=== PATIENT | male | born 1955 | race African-American/Black ===

== ENCOUNTER 2023-12-01 15:00 | Inpatient (IN) | payer MEDICARE, OTHER, SELFPAY ==
[2023-12-01] VITALS (15 sets, daily range): BP systolic 0–175; BP diastolic 80–104; BMI 27.0
[2023-12-01 10:02] LABS: Glucose - Point of Care 104 mg/dl (70-99)
[2023-12-01 12:49] LABS: Glucose - Point of Care 89 mg/dl (70-99)
--- NOTE | 2023-12-01 14:03 | CON.CRS ---
Consultation
-
Date/Time Consultation Requested: 12/01/2023, 14:03
Date/Time Consultation Performed: 12/01/2023, 14:30
Requesting Provider: Saturnino Bass MD
Performing Provider: Jaime Vega MD
Reason for Consultation: Colon perforation
Medical History
-
Chief Complaint: Colon perforation
History of Present Illness:
HPI obtained from daughter Kandice and records (patient nonverbal).
68-year-old male with a past medical history of vascular dementia, nonverbal, CVA with G-tube, colon cancer s/p colostomy (daughter unsure what area of colon or type) and chemo in 2012 in [place], kidney cancer s/p nephrectomy and chemo,
chronic [place], history of PE, type 2 diabetes among other medical issues presents today for colonoscopy. He underwent a colonoscopy due to a positive cologuard in April [address] Robin which showed one 8 mm polyp in the transverse colon, one 10
mm polyp in the descending colon, two 5 to 10 mm polyps in the ascending colon, and a likely malignant tumor in the proximal ascending colon. 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 Per records, he
was in inpatient at [facility] in July 2023 and then at [place] in October 2023 where he had fluid around his gallbladder and ERCP showed a stone, drain placed. The patient was scheduled in an outpatient setting for colonoscopy today
by Dr. Bass. This revealed a 6 mm polyp in the cecum, and a 38 mm polyp in the ascending colon that was retrieved. A perforation was noted intraprocedure and clips were placed. He was then admitted for ongoing care due to this.
Past Medical History
Past Medical History: Cancer (colon cancer s/p colostomy, kidney cancer s/p nephrectomy) and Other (vascular dementia, nonverbal, CVA with G-tube, colostomy s/p colectomy from colon cancer, chronic [place], hypertension, hypercholesteremia,
hypothyroidism, pulmonary embolism, glaucoma, type 2 diabetes, hyperlipidemia, s/p biliary tube - gallstone)
Past Surgical History: Other (G tube, biliary tube, colectomy with colostomy creation - 2013, nephrectomy)
Social History
Tobacco: Non-Smoker
Alcohol: None
Drug: None
Family History
Family History: Reviewed & Not Pertinent
Allergies / Home Medications
Allergy/AdvReac Type Severity Reaction Status Date / Time
No Known Drug Allergies Allergy Unknown Verified 12/01/23 10:19
Medication Instructions Recorded Confirmed Type
acetaminophen 325 mg tablet 650 mg feeding tube Q6H PRN mild 05/04/23 05/06/23 History
pain or fever>100
albuterol sulfate 2.5 mg/3 mL 2.5 mg inhalation R Q6HPRN PRN sob 05/04/23 05/06/23 History
(0.083 %) solution for nebulization
amlodipine 5 mg tablet 5 mg feeding tube DAILY 05/04/23 05/06/23 History
apixaban 2.5 mg tablet (Eliquis) 2.5 mg feeding tube BID 05/04/23 12/01/23 History
atorvastatin 20 mg tablet 20 mg feeding tube HS 05/04/23 05/06/23 History
hydrochlorothiazide 50 mg tablet 50 mg feeding tube DAILY 05/04/23 05/06/23 History
insulin aspart U-100 100 unit/mL 1 - 10 sliding scale dose SC Q6H 05/04/23 05/06/23 History
(3 mL) subcutaneous pen (Novolog
FlexPen U-100 Insulin aspart)
insulin glargine 100 unit/mL (3 8 unit SC HS 05/04/23 05/06/23 History
mL) subcutaneous pen (Lantus
Solostar U-100 Insulin)
lisinopril 10 mg tablet 10 mg feeding tube DAILY 05/04/23 05/06/23 History
methenamine hippurate 1 gram tablet 1 g feeding tube BID 05/04/23 05/06/23 History
metoprolol tartrate 25 mg tablet 12.5 mg feeding tube BID 05/04/23 05/06/23 History
omeprazole 20 mg capsule,delayed 20 mg feeding tube HS 05/04/23 05/06/23 History
release
ascorbic acid (vitamin C) 500 mg 500 mg feeding tube DAILY 05/06/23 05/06/23 History
tablet (Vitamin C)
bisacodyl 10 mg rectal suppository 10 mg [place] DAILY PRN constipation 05/06/23 05/06/23 History
(Dulcolax (bisacodyl)) once if mom ineffective
cholecalciferol (vitamin D3) 25 25 mcg feeding tube DAILY 05/06/23 05/06/23 History
mcg (1,000 unit) tablet
cranberry fruit 450 mg tablet 450 mg feeding tube BID 05/06/23 05/06/23 History
(cranberry)
emollient combination no.111 1 applic topical TID apply to both 05/06/23 05/06/23 History
(Remedy Phytoplex Moisturizer buttocks
topical cream)
ferrous sulfate 300 mg (60 mg 150 mg feeding tube BID 05/06/23 05/06/23 History
iron)/5 mL oral liquid
latanoprost 0.005 % eye drops 1 drp BOTH EYES HS 05/06/23 05/06/23 History
levetiracetam 500 mg/5 mL (5 mL) 500 mg feeding tube BID 05/06/23 05/06/23 History
oral solution
levothyroxine 25 mcg tablet 25 mcg feeding tube DAILY 05/06/23 05/06/23 History
magnesium hydroxide 400 mg/5 mL 30 ml feeding tube DAILY PRN give 05/06/23 05/06/23 History
oral suspension (Milk of Magnesia) once if no BM x 3 days
nystatin 100,000 unit/gram topical 1 applic topical TID apply to abd 05/06/23 05/06/23 History
powder fold, colostom blister site
oxybutynin 3.9 mg/24 hr semiweekly 1 patch transdermal TUFR 05/06/23 05/06/23 History
transdermal patch (Oxytrol)
polyethylene glycol 3350 17 gram 17 g feeding tube DAILY PRN 05/06/23 05/06/23 History
oral powder packet constipation
polyethylene glycol 3350 17 gram 17 g feeding tube DAILY 05/06/23 05/06/23 History
oral powder packet (Miralax)
senna leaf extract 176 mg/5 mL 15 ml feeding tube HS 05/06/23 05/06/23 History
oral syrup (senna)
simethicone 80 mg chewable tablet 80 mg PO Q6H PRN gas 05/06/23 05/06/23 History
sodium phosphates 19 gram-7 118 ml NM DAILY PRN once if 05/06/23 05/06/23 History
gram/118 mL enema (Fleet Enema) dulcolax ineffective
Review of Systems
-
Unable to obtain full review of systems at this time due to: Patient Non Verbal
History Source: Family and [facility]
All other systems: Negative unless noted
A 10 point review of systems was completed, and was negative except as per HPI.
Physical Exam
Vital Signs
Temp 97.9 F 12/01/23 10:00
Pulse 90 12/01/23 10:00
Resp Rate 18 12/01/23 10:00
Blood pressure 137/100 12/01/23 10:00
SaO2 100 12/01/23 10:00
11/30/23 12/01/23 12/02/23
06:59 06:59 06:59
Actual Weight 83 kg
Body Mass Index (BMI) 27.0
Lab Results / Allergies
Allergy/AdvReac Type Severity Reaction Status Date / Time
No Known Drug Allergies Allergy Unknown Verified 12/01/23 10:19
Physical Exam
General: No Apparent Distress and Comfortable
GI: Soft, Non Tender and Non Distended
Neuro: Other (nonverbal, sleepy)
Psych: Calm
Data Reviewed
-
Medical Tests (Nuc Med, Echo etc): Image Personally Visualized and interpreted and Report Reviewed by me
Labs: Labs Reviewed by me and Discussed with Physician
Assessment / Plan
-
Assessment: 68-year-old male with several medical issues including a past CVA, nonverbal state, colostomy, and G tube, status post colonoscopy today with a perforation upon resection treated with clips
Plan:
Remain n.p.o. status. Start IV antibiotics. Hold Eliquis. Will be admitted. Trend labs and vital signs. Discussed with daughterKandice. No surgery warranted at this time.
--- NOTE | 2023-12-01 14:18 | HPS.HSE ---
Addendum entered and electronically signed by Joanne Freeman MD 12/01/23 16:24:
pt seen and examined independently--agree with [facility] note
GENERAL: chronically ill appearing male in no apparent distress seen in PACU
HEENT: NC/AT--O2 NC in [address]
HEART: regular rate and rhythm, +S1, +S2
LUNGS : clear to auscultation bilaterally
ABDOM: soft, nontender, nondistended, + bowel sounds--left sided ostomy with right sided percutaneous cholecystectomy tube with green bile
EXT: no cyanosis, clubbing, or edema--thickened toenails, multipodis boots on bilateral legs--contracted arms
NEUROLOGIC: nonverbal with presumed bedbound status and contractures
: chronic call[place]?
Colon Perforation ascending colon status post polyp resection today 12/01/2023-- 6 mm polyp cecum removed, 30 mm polyp resection ascending colon with post perforation--ADMIT to [facility]--apprec GI/CRS--NPO--IVF--meds IV as able--start zosyn--culture
Hx rectal bleeding post colonoscopy with polypectomy May 2023
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
CVA hx/History of vascular dementia, nonverbal at baseline--Chronic� contracture neck, arms, left hand and legs--not amenable to PT/OT
Seizure history?� Post CVA--Continue IV Keppra
Chronic G-tube 11/06 CVA--Chronic Abd pain per daughter
Gerd-- will make PPI IV daily
Chronic [place] catheter--monitor output-- hold oxytrol
Nephrectomy due to renal cancer /solo kidney unsure what side
chronic cholecystits presumed with percutaneous biliary tube�placed at [facility] oct 29 for gallstone�not removed--had follow up at [facility] not [facility] that placed it
History of constipation--Hold stool softeners
Essential hypertension--Hold po� amlodipine, hydrochlorothiazide, lisinopril, metoprolol--Iv hydralazine prn sbp >165
Hypercholesterolemia--Continue statin
Type 2 diabetes--Hold Lantus 8 units due to n.p.o. status--Insulin sliding scale low
Hypothyroidism--Hold po levothyroxine
History of pulmonary embolism--Hold Eliquis--reportedly got dose of Eliquis yesterday before procedure today
Glaucoma-Continue eyedrops
History of anemia of chronic disease--HoLd iron supplement
DVT prophylaxis--SCDs hold Eliquis
Full code
Original Note:
Family Physician
-
Family Physician: INTERVIEWE UNKNOWN - PT NOT
Chief Complaint
-
perforation s/p polypectomy
History of Present Illness
68-year-old male status post polyp resection with perforation during surgery. He is currently in PACU and stable . with no active bleeding and stable vitals. He is a difficult stick was stuck 9 times . We will consult iv team for midline but may
require central line by IR. He had [place] drain biliary tube placed at [facility] oct 29 for gallstone not removed, daugther stated to colo surgery that GI at [facility] told them to keep the tube in. THe pt is baseline nonverbal secondary to CVA,
seizure disorder 2/2 CVA, vascular dementia with history of G-tube, colostomy, Hx rectal bleeding post colonoscopy with polypectomy May 2023 chronic Call[place], DM2, HTN, HLD, hypothyroidism, PE, glaucoma, anemia.
Medical History
Past Medical History
Past Medical History: Reports Other (vascular dementia, nonverbal, CVA seizures, with G-tube/dysphagia, colostomy, solo kidney form nephrectomy , chronic [place], hypertension, hypercholesteremia, hypothyroidism, pulmonary embolism, glaucoma, type 2
diabetes, hyperlipidemia)
Past Surgical History: Reports Other (polpyectomy multiple , nephrectomy 2/2 renal cancer , Colostomy, [place] biliary drain oct 29 2023 [facility] )
Social History
Tobacco: Non-smoker
Alcohol: None
Drug: None
Personal:
Living: [facility] (has a )
Employment: Disabled
Family History
Family History: Not pertinent
Allergies / Home Medications
Allergies reflects when Allergies were last updated in [employer].
Home Medications with original date entered in [employer]
Allergy/Medication List:
Allergies
Allergy/AdvReac Type Severity Reaction Status Date / Time
No Known Drug Allergies Allergy Unknown Verified 12/01/23 10:19
Home Medications
acetaminophen 325 mg tablet 650 mg feeding tube Q6H PRN mild pain or fever>100 05/04/23
albuterol sulfate 2.5 mg/3 mL (0.083 %) solution for nebulization 2.5 mg inhalation R Q6HPRN PRN sob 05/04/23
amlodipine 5 mg tablet 5 mg feeding tube DAILY 05/04/23
apixaban 2.5 mg tablet (Eliquis) 2.5 mg feeding tube BID 05/04/23
atorvastatin 20 mg tablet 20 mg feeding tube HS 05/04/23
hydrochlorothiazide 50 mg tablet 50 mg feeding tube DAILY 05/04/23
insulin aspart U-100 100 unit/mL (3 mL) subcutaneous pen (Novolog FlexPen U-100 Insulin aspart) 1 - 10 sliding scale dose SC Q6H 05/04/23
insulin glargine 100 unit/mL (3 mL) subcutaneous pen (Lantus Solostar U-100 Insulin) 8 unit SC HS 05/04/23
lisinopril 10 mg tablet 10 mg feeding tube DAILY 05/04/23
methenamine hippurate 1 gram tablet 1 g feeding tube BID 05/04/23
metoprolol tartrate 25 mg tablet 12.5 mg feeding tube BID 05/04/23
omeprazole 20 mg capsule,delayed release 20 mg feeding tube HS 05/04/23
ascorbic acid (vitamin C) 500 mg tablet (Vitamin C) 500 mg feeding tube DAILY 05/06/23
bisacodyl 10 mg rectal suppository (Dulcolax (bisacodyl)) 10 mg [place] DAILY PRN constipation once if mom ineffective 05/06/23
cholecalciferol (vitamin D3) 25 mcg (1,000 unit) tablet 25 mcg feeding tube DAILY 05/06/23
cranberry fruit 450 mg tablet (cranberry) 450 mg feeding tube BID 05/06/23
emollient combination no.111 (Remedy Phytoplex Moisturizer topical cream) 1 applic topical TID apply to both buttocks 05/06/23
ferrous sulfate 300 mg (60 mg iron)/5 mL oral liquid 150 mg feeding tube BID 05/06/23
latanoprost 0.005 % eye drops 1 drp BOTH EYES HS 05/06/23
levetiracetam 500 mg/5 mL (5 mL) oral solution 500 mg feeding tube BID 05/06/23
levothyroxine 25 mcg tablet 25 mcg feeding tube DAILY 05/06/23
magnesium hydroxide 400 mg/5 mL oral suspension (Milk of Magnesia) 30 ml feeding tube DAILY PRN give once if no BM x 3 days 05/06/23
nystatin 100,000 unit/gram topical powder 1 applic topical TID apply to abd fold, colostom blister site 05/06/23
oxybutynin 3.9 mg/24 hr semiweekly transdermal patch (Oxytrol) 1 patch transdermal TUFR 05/06/23
polyethylene glycol 3350 17 gram oral powder packet 17 g feeding tube DAILY PRN constipation 05/06/23
polyethylene glycol 3350 17 gram oral powder packet (Miralax) 17 g feeding tube DAILY 05/06/23
senna leaf extract 176 mg/5 mL oral syrup (senna) 15 ml feeding tube HS 05/06/23
simethicone 80 mg chewable tablet 80 mg PO Q6H PRN gas 05/06/23
sodium phosphates 19 gram-7 gram/118 mL enema (Fleet Enema) 118 ml [place] DAILY PRN once if dulcolax ineffective 05/06/23
Review of Systems
-
History Source: Other (nursing and old records)
A 12 point ROS was completed and negative except as noted: Yes
Constitutional: Denies Fever or Chills
EENT: Reports Other (chronic nonverbal hx vasc dementia chronic contracture neck ); Denies Runny Nose
Respiratory: Denies Cough or Trouble Breathing
Physical Exam
Vital Signs
Vital Signs
Temp Pulse Resp BP Pulse Ox
98.2 F 90 18 137/100 100
12/01/23 13:43 12/01/23 10:00 12/01/23 10:00 12/01/23 10:00 12/01/23 10:00
Physical Exam
General: Comfortable and Other (chronic nonverbal hx vasc dementia chronic contracture neck ); No Fever or Chills
HEENT: NormoCephalic, Anicteric and No Ptosis
Respiratory: Clear; No Wheezes, Rales or Rhonchi
Cardiac: S1/S2 and Regular Rhythm; No Murmur, Rub, Gallop or Peripheral Edema
Breast: Deferred by me
GI: Soft, Non Tender, Non Distended, Normal Bowel Sounds, No Hepatosplenomegaly, Peg Tube and Ostomy (pink stoma no bleeding , [place] biliary drain right side abdomen)
Rectal: Deferred by Provider
Genito-urinary: Call[place] (poa )
Musculoskeletal: No Clubbing, No Cyanosis, No Edema and Other (cohronic contracture legs, arms , left hand and neck to right )
Skin: Warm and Dry; No Rash
Neuro: Other (chronic nonverbal,moans when touched,chronic contracture legs, arms , left hand and neck to right )
Psych: Calm
Impression/Plan
-
Impression/plan:
Admit to MED surg
#COlon Perforation ascending colon status post polyp resection today 12/01/2023 6 mm polyp cecum removed, 30 mm polyp resection ascending colon with post perforation
#Hx rectal bleeding post colonoscopy with polypectomy May 2023
-Consult GI
-Consult colorectal surgery
-N.p.o.
-IV NSS
-CBC, BMP stat, Type and screen( all pending )
- blood cultures x2
-Iv Zosyn
picc line may require central line
#Chronic Colostomy
monitor output
#CVA hx
#History of vascular dementia, nonverbal at baseline
# Chronic contracture neck, arms, left hand and legs
#Seizure history? Post CVA
-Continue IV Keppra
#Chronic G-tube 2/2 CVA
# Chronic Abd pain per daugther
#Gerd
- will make PPI IV daily
#Chronic [place] catheter
-monitor output
- hold oxytrol
# Nephrectomy 2/2 renal cancer /solo kidney unsure what side
# [place] drain biliary tube placed at [facility] oct 29 for gallstone not removed.
-had follow up at [facility] not [facility] that placed it
- will need surgery to eval
#History of constipation
-Hold stool softeners
#Essential hypertension
166/95
-Hold po amlodipine, hydrochlorothiazide, lisinopril, metoprolol
-Iv hydralazine prn sbp >165
#Hypercholesterolemia
-Continue statin
#Type 2 diabetes
-Hold Lantus 8 units due to n.p.o. status
-Insulin sliding scale low
#Hypothyroidism
-HOld po levothyroxine
#History of pulmonary embolism
-Hold Eliquis
#Glaucoma
-Continue eyedrops
#History of anemia
-Check CBC
-HOLd iron supplement
DVT prophylaxis
SCDs hold Eliquis
Full code
[2023-12-01 14:41] LABS: Glucose - Point of Care 100 mg/dl (70-99)
--- NOTE | 2023-12-01 15:23 | CON.GI ---
Addendum entered and electronically signed by ARMANDO Ortiz 12/01/23 16:21:
reviewed history with daughter -- Kandice [phone]
add to consult below
doing well since last seen in June but had cholecystis with nausea and vomiting with want sounds like CBD stone in 10/13/23 vicente tube placed then 10/29/23 ERCP with stone removal. Plan for vicente at [facility] in January and plan to keep
vicente tube in place til that time.
hx prior tobacco use quit 2009, social ETOH years ago, no drug use
brother with hx stomach CA
per family no known fever or wt loss prior to admission but chronic urinary catheter and occasional shortness of breath wtih resp rx as needed.
cont plan as below will need follow up with [place] for vicente as planned in January
Original Note:
Consultation
-
Date/Time Consultation Requested: 12/01/23
Date/Time Consultation Performed: 12/01/23
Requesting Provider: Dr. Freeman
Performing Provider:
Reason for Consultation: colon perf s/p polypectomy
Medical History
Chief Complaint / HPI
Chief Complaint: colon perf s/p polypectomy, abdominal pain
History of Present Illness:
This is a 68-year-old male with past medical history of CVA nonverbal who has a PEG tube, vascular dementia, seizures, hyperlipidemia, hypertension, colon cancer status postresection with colostomy, kidney cancer status post nephrectomy, diabetes,
hypothyroidism, pulmonary embolism on Eliquis, glaucoma, recent biliary drain placed at [place] on 10/29 for ? cholecystitis and gallstones, colon polyps who had a positive Cologuard and initially had a colonoscopy on 05/04/2023 and had multiple colon
polyps ( TA's) removed but he also had a large polyp versus mass noted in the proximal ascending colon which was biopsied and came back as a tubulovillous adenoma and was negative for malignancy he also was admitted on 05/06/2023 for a post
polypectomy bleed when he restarted the anticoagulation with Eliquis which resolved with holding Eliquis and he did not require intervention. he was scheduled for repeat colonoscopy for complex polypectomy with Dr. Bass today and he had undergone the
procedure with EMR of a 30 mm polyp in the ascending colon during resection a full-thickness defect was noted consistent with perforation and this was closed with 4 hemostatic clips successfully and patient is being admitted following that.
Colorectal surgery has also been consulted. He has been started on antibiotics with Zosyn
Past Medical History
Past Medical History: Other (CVA non verbal s/p PEG, vascular dementia, Colon cancer, colon polyps, kidney cancer, diabetes, hypothyroidism, seizure, HTN, HLD, PE on Eliquis, Glaucoma)
Past Surgical History: Other (Nephrectomy, colon resection with colostomy, perc biliary drain 10/[facility]/23 [facility])
Social History
Tobacco: Non-Smoker
Alcohol: None
Personal:
Living: Jail
Family History
Family History: Unable to Obtain
Allergies / Home Medications
Allergy/AdvReac Type Severity Reaction Status Date / Time
No Known Drug Allergies Allergy Unknown Verified 12/01/23 10:19
Medication Instructions Recorded
acetaminophen 325 mg tablet 650 mg feeding tube Q6H PRN mild 05/04/23
pain or fever>100
albuterol sulfate 2.5 mg/3 mL 2.5 mg inhalation R Q6HPRN PRN sob 05/04/23
(0.083 %) solution for nebulization
amlodipine 5 mg tablet 5 mg feeding tube DAILY 05/04/23
apixaban 2.5 mg tablet (Eliquis) 2.5 mg feeding tube BID 05/04/23
atorvastatin 20 mg tablet 20 mg feeding tube HS 05/04/23
hydrochlorothiazide 50 mg tablet 50 mg feeding tube DAILY 05/04/23
insulin aspart U-100 100 unit/mL 1 - 10 sliding scale dose SC Q6H 05/04/23
(3 mL) subcutaneous pen (Novolog
FlexPen U-100 Insulin aspart)
insulin glargine 100 unit/mL (3 8 unit SC HS 05/04/23
mL) subcutaneous pen (Lantus
Solostar U-100 Insulin)
lisinopril 10 mg tablet 10 mg feeding tube DAILY 05/04/23
methenamine hippurate 1 gram tablet 1 g feeding tube BID 05/04/23
metoprolol tartrate 25 mg tablet 12.5 mg feeding tube BID 05/04/23
omeprazole 20 mg capsule,delayed 20 mg feeding tube HS 05/04/23
release
ascorbic acid (vitamin C) 500 mg 500 mg feeding tube DAILY 05/06/23
tablet (Vitamin C)
bisacodyl 10 mg rectal suppository 10 mg GA DAILY PRN constipation 05/06/23
(Dulcolax (bisacodyl)) once if mom ineffective
cholecalciferol (vitamin D3) 25 25 mcg feeding tube DAILY 05/06/23
mcg (1,000 unit) tablet
cranberry fruit 450 mg tablet 450 mg feeding tube BID 05/06/23
(cranberry)
emollient combination no.111 1 applic topical TID apply to both 05/06/23
(Remedy Phytoplex Moisturizer buttocks
topical cream)
ferrous sulfate 300 mg (60 mg 150 mg feeding tube BID 05/06/23
iron)/5 mL oral liquid
latanoprost 0.005 % eye drops 1 drp BOTH EYES HS 05/06/23
levetiracetam 500 mg/5 mL (5 mL) 500 mg feeding tube BID 05/06/23
oral solution
levothyroxine 25 mcg tablet 25 mcg feeding tube DAILY 05/06/23
magnesium hydroxide 400 mg/5 mL 30 ml feeding tube DAILY PRN give 05/06/23
oral suspension (Milk of Magnesia) once if no BM x 3 days
nystatin 100,000 unit/gram topical 1 applic topical TID apply to abd 05/06/23
powder fold, colostom blister site
oxybutynin 3.9 mg/24 hr semiweekly 1 patch transdermal TUFR 05/06/23
transdermal patch (Oxytrol)
polyethylene glycol 3350 17 gram 17 g feeding tube DAILY PRN 05/06/23
oral powder packet constipation
polyethylene glycol 3350 17 gram 17 g feeding tube DAILY 05/06/23
oral powder packet (Miralax)
senna leaf extract 176 mg/5 mL 15 ml feeding tube HS 05/06/23
oral syrup (senna)
simethicone 80 mg chewable tablet 80 mg PO Q6H PRN gas 05/06/23
sodium phosphates 19 gram-7 118 ml GA DAILY PRN once if 05/06/23
gram/118 mL enema (Fleet Enema) dulcolax ineffective
Review of Systems
-
Unable to obtain full review of systems at this time due to: Patient Non Verbal
Vital Signs
Temp Pulse Resp BP Pulse Ox
98.2 F 89 15 154/90 100
12/01/23 13:43 12/01/23 15:00 12/01/23 15:00 12/01/23 15:00 12/01/23 15:00
Physical Exam
Exam
General: No Apparent Distress
HEENT: Normocephalic
Respiratory: Clear
Cardiac: S1/S2
GI: Soft and Distended (mildly distended, has PEG, biliary drain in RUQ and colostomy in LLQ, mild tenderness diffusely, has BS)
Musculoskeletal: No Clubbing
Skin: Warm
Neuro: Awake and Other (non verbal)
Results
Diagnostic Image Results:
Prior GI Procedures:
EGD:
Colonoscopy: 12/01/23
Impression:� � � � � � - One 6 mm polyp in the cecum, removed with a cold
�� � � � � � � � � � � snare. Resected and retrieved.
�� � � � � � � � � � � - One 30 mm polyp in the ascending colon, removed with
�� � � � � � � � � � � mucosal resection. Resected and retrieved. Injected.
�� � � � � � � � � � � Treated with hot biopsy forceps. Perforatioin noted
�� � � � � � � � � � � intraprocedure, clips (MR conditional) were placed.
�� � � � � � � � � � � - Mucosal resection was performed. Resection and
�� � � � � � � � � � � retrieval were complete.
Colonoscopy: 05/04/23
Impression:� � � � � � - One 8 mm polyp in the transverse colon, removed with
�� � � � � � � � � � � a cold snare. Resected and retrieved.
�� � � � � � � � � � � - One 10 mm polyp in the descending colon, removed
�� � � � � � � � � � � with a cold snare. Resected and retrieved.
�� � � � � � � � � � � - Two 5 to 10 mm polyps in the ascending colon,
�� � � � � � � � � � � removed with a cold snare. Resected and retrieved.
�� � � � � � � � � � � - Likely malignant tumor in the proximal ascending
�� � � � � � � � � � � colon. Biopsied.
�� � � � � � � � � � � - The scope also passed through the rectum, there was
�� � � � � � � � � � � solid still in the rectum,.
Assessment / Plan
-
1. Colon perforation noted post colonoscopy with polypectomy today and the defect was closed with 4 clips during the procedure with complete closure of the defect. He currently is hemodynamically stable and he is going to be admitted and
colorectal surgery has also been consulted will continue the broad-spectrum antibiotics that he is already been started on and perform serial abdominal exams.
2. He also has prior history of colon cancer status postresection with colostomy.
3 he also recently had a biliary drain placed at [place] on 10/29 for gallstones and possible cholecystitis
-
-
Thank you for consultation and allowing me to participate in the patient's care. Please call the detention attendant GI physician during the after hours with any questions or concerns.
[2023-12-01] MEDS: NSS 1000 IV (15:30)
--- NOTE | 2023-12-01 16:15 | PTCARENOTE ---
Pt received from PACU via stretcher. Transport was w/o incident. Pt 's daughter at bedside. Pt is awake will stare, but is nonverbal. Colostomy intact and stoma budded and pink. Biliary drain noted w/ bile drainage. Pt with gtube intact. Pt's body
has scattered areas of healed what appears to be old pressure sores. Skin is discolored, but integrity intact. Foam dressing placed on Sacrum for preventative measures. Pt with knee high foam boots in place. No wounds on heels noted. BP elevated at
present 162/104 HR 94 R 18 T:98.5 and Pulse ox 100%2L via nc. Will re evaluate bp and medicate as ordered/needed.
[2023-12-01 16:47] LABS: Glucose - Point of Care 99 mg/dl (70-99)
[2023-12-01 17:12] LABS: % Basophils 0.3 % (0-2); % Eosinophils 0.1 % (0-6); % Immature Granulocytes 0.4 % (0-0.5); % Lymphocytes 13.3 % (20.5-51.1); % Monocytes 7.6 % (1.7-9.3); % Neutrophils 78.3 % (42.2-75.2); Absolute Immature Granulocytes 0.1 10^3/uL (0-0.05); Absolute Lymphocytes 1.8 10^3/uL (1.2-3.4); Absolute Monocytes 1.1 10^3/uL (0.1-0.6); Absolute Neutrophils 10.8 10^3/uL (1.4-6.5); Hematocrit 38.4 % (39.0-52.0); Hemoglobin 12.8 g/dL (13.0-18.0); Mean Corp Hgb Conc. 33.3 g/dL (33.0-37.0); Mean Corpuscular Hgb 31.4 pg (27.0-31.0); Mean Corpuscular Volume 94.3 fL (80.0-94.0); Mean Platelet Volume 10.3 fL (7.4-10.4); Nucleated Red Blood Cells % 0 % (-); Platelet Count 315 10^3/uL (130-400); Red Blood Cell Count 4.07 10^6/uL (4.70-6.10); White Blood Cell Count 13.9 10^3/uL (4.8-10.8)
[2023-12-01 17:29] LABS: ALT (SGPT) 40 U/L (0-50); AST (SGOT) 39 U/L (17-59); Albumin 3.6 g/dl (3.5-5.0); Alkaline Phosphatase 97 U/L (38-126); Blood Urea Nitrogen 10 mg/dl (9-20); Calcium 9.4 mg/dl (8.4-10.2); Carbon Dioxide 31 mmol/L (22-30); Chloride 99 mmol/L (98-107); Estimated Creatinine Clearance 115 ml/min; Glucose 105 mg/dl (70-99); Potassium 3.3 mmol/L (3.5-5.1); Sodium 137 mmol/L (135-145); Total Protein 7.2 g/dl (6.3-8.2); eGFR > 60.00
[2023-12-01] MEDS: ZOSYN 50 IV ×2 (18:04→21:16)
--- NOTE | 2023-12-01 19:08 | W.PN.UPDATE ---
Update Note
Progress Note Update
LAbs reported
#Hypokalemia
k 3.3 will give kcl rider 40 Meq
follow bmp in am
#biliary drain WITH stone removal
- Pt did have Gallstone removed was clarified by GI
is scheduled for gallbladder removal February at [facility]
[2023-12-01] MEDS: KCL 270 MEQ IV (20:25)
[2023-12-01] MEDS: KEPPRA 500 MG IV (20:26)
[2023-12-01] MEDS: APRESOLINE 10 MG IV (21:36)
--- NOTE | 2023-12-01 21:44 | VATNOTE ---
BLOOD BANK LABS DRAWN ORDERED VIA Rosario MCDERMOTT. PHELOBOTOMY UNABLE TO OBTAIN 2ND SET OF BC PERIPHERALLY. DRAWN VIA ML AND PCN MADE AWARE TO NOTIFY PROVIDER. [facility] DRAW DRAW.
[2023-12-01 23:41] LABS: Glucose - Point of Care 92 mg/dl (70-99)
[2023-12-02] MEDS: ZOSYN 50 IV ×4 (03:34→21:07)
[2023-12-02 03:37] VITALS: BP 127/91
[2023-12-02 06:15] LABS: % Basophils 0.2 % (0-2); % Eosinophils 0.1 % (0-6); % Immature Granulocytes 0.5 % (0-0.5); % Lymphocytes 14.9 % (20.5-51.1); % Monocytes 11.6 % (1.7-9.3); % Neutrophils 72.7 % (42.2-75.2); Absolute Immature Granulocytes 0.1 10^3/uL (0-0.05); Absolute Monocytes 1.6 10^3/uL (0.1-0.6); Absolute Neutrophils 9.8 10^3/uL (1.4-6.5); Hematocrit 40.2 % (39.0-52.0); Mean Corp Hgb Conc. 32.3 g/dL (33.0-37.0); Mean Corpuscular Hgb 31.3 pg (27.0-31.0); Mean Corpuscular Volume 96.6 fL (80.0-94.0); Mean Platelet Volume 10.3 fL (7.4-10.4); Nucleated Red Blood Cells % 0 % (-); Platelet Count 333 10^3/uL (130-400); Red Blood Cell Count 4.16 10^6/uL (4.70-6.10); White Blood Cell Count 13.5 10^3/uL (4.8-10.8)
[2023-12-02 06:52] LABS: ALT (SGPT) 40 U/L (0-50); AST (SGOT) 37 U/L (17-59); Albumin 3.6 g/dl (3.5-5.0); Alkaline Phosphatase 93 U/L (38-126); Blood Urea Nitrogen 10 mg/dl (9-20); Carbon Dioxide 25 mmol/L (22-30); Chloride 102 mmol/L (98-107); Estimated Creatinine Clearance 86 ml/min; Glucose 116 mg/dl (70-99); Potassium 3.7 mmol/L (3.5-5.1); Sodium 139 mmol/L (135-145); Total Bilirubin 1.6 mg/dl (0.2-1.3); Total Protein 7.4 g/dl (6.3-8.2); eGFR > 60.00
[2023-12-02 07:14] LABS: Glucose - Point of Care 108 mg/dl (70-99)
[2023-12-02 07:25] VITALS: BP 159/92
--- NOTE | 2023-12-02 09:00 | W.PN.GI.CBS2 ---
Today's Communication / Plan
-
obstruction series today
NPO
continue antibiotics
IVF
Assessment / Plan
-
1. Colon perforation noted post colonoscopy with polypectomy 12/01 and the defect was closed with 4 clips during the procedure with complete closure of the defect. continue the broad-spectrum antibiotics and serial abdominal exams. His abdominal
exam today is benign no signs of peritonitis noted will get an obstruction series and likely could start tube feeds tomorrow if negative and if cleared also by CRS
2. He also has prior history of colon cancer status postresection with colostomy.
3.had calculous cholecystis in Oct with CBD stone 10/13/23 vicente tube placed then 10/29/23 ERCP with stone removal.� Plan for vicente at [facility] in January and plan to keep vicente tube in place til that time.
Subjective
Subjective
Date of Service: December 02, 2023
Patient nonverbal unable to obtain any history but sleeping comfortably and does not appear to be in pain or in any distress
Objective
Data Reviewed
Laboratory Data:
Laboratory Results
12/02/23 05:49
12/02/23 05:49
Laboratory Results
Total Bilirubin 1.6 mg/dl (0.2-1.3) H 12/02/23 05:49
AST 37 U/L (17-59) 12/02/23 05:49
ALT 40 U/L (0-50) 12/02/23 05:49
Alkaline Phosphatase 93 U/L (38-126) 12/02/23 05:49
Vital Signs and I&O:
Vital Signs
Temp Pulse Resp BP Pulse Ox
98.9 F 118 19 159/92 96
12/02/23 07:25 12/02/23 07:25 12/02/23 07:25 12/02/23 07:25 12/02/23 07:25
I&O
12/01/23 12/02/23 12/03/23
06:59 06:59 06:59
Intake Total 1190 / 1190
Output Total 620 / 620 40 / 40
Balance 570 / 570 -40 / -40
Physical Exam
Physical Exam
Cardiology: Normal Sinus Rhythm
Pulmonary: Clear
GI: Soft, Non Distended, Non Tender and Other (hypoactive BS)
[2023-12-02] MEDS: PROTONIX IV 40 MG IV (09:33)
[2023-12-02] MEDS: NSS 1000 IV (09:34)
[2023-12-02] MEDS: NSS (PRESERVATIVE FREE) 10 ML IV (09:34)
[2023-12-02] MEDS: KEPPRA 500 MG IV ×2 (09:34→20:50)
[2023-12-02 09:58] LABS: Glycohemoglobin (HgbA1c) 5.9 % (4.0-5.6)
[2023-12-02 11:00] VITALS: BP 139/94
--- NOTE | 2023-12-02 11:09 | W.PN.CRS1 ---
Today's Communication / Plan
-
no surgery waranteed at this time
Assessment/Plan
-
Assessment: 68-year-old male with several medical issues including a past CVA, nonverbal state, colostomy, and G tube, status post colonoscopy today with a perforation upon resection treated with clips
Plan:
1. Tachycardic. Afebrile. WBC down to 13.5.
2. Xray ordered by GI this morning shows no free air.
3. Bleeding from stoma. Continue to hold Eliquis. Management per GI.
4. No colorectal surgery is indicated at this time.
Subjective Data
Subjective Data
Date of Service: December 02, 2023
Patient is unable to verbalize any complaints. He was tachycardic this morning and now has bleeding from his stoma.
Objective Data
-
Vital Signs
Temp Pulse Resp BP Pulse Ox
98.9 F 118 19 159/92 96
12/02/23 07:25 12/02/23 07:25 12/02/23 07:25 12/02/23 07:25 12/02/23 09:35
Intake & Output
12/01/23 12/02/23 12/03/23
06:59 06:59 06:59
Intake Total 1190 / 1190
Output Total 620 / 620 40 / 40
Balance 570 / 570 -40 / -40
Intake:
IV fluids (Total) 820 / 820
Nss 1,000 ml @ 60 mls/hr IV . 100 / 100
[id number] [facility] Rx#:[id number]
IV piggybacks 370 / 370
Output:
Drain Output (Total) 170 / 170 40 / 40
Right Biliary 170 / 170 40 / 40
Urine, Mesa 450 / 450
Lab Results
12/02/23 05:49
12/02/23 05:49
Physical Exam
-
General: No Acute Distress and Other (sleepy)
Abdomen: Soft, Non Distended and Non Tender
Skin: Warm and Dry
--- NOTE | 2023-12-02 11:46 | W.PN.UPDATE ---
Update Note
Progress Note Update
12/02/23 obstruction series
IMPRESSION:
No radiographically demonstrable free intraperitoneal air.
A group of 4 Endoclips are present laterally in the right mid abdomen.
No evidence of bowel obstruction. Nonspecific bowel gas pattern. Possible mild ileus.
Small bilateral pleural effusions.
Hopefully could resume tube feeds tomorrow if no further change and possible DC tomorrow on antibiotics for 7 to 10 days
[2023-12-02 11:50] LABS: Glucose - Point of Care 113 mg/dl (70-99)
--- NOTE | 2023-12-02 15:03 | CM ---
Addendum entered by Tracy Bach 12/02/23 16:53:
CM updated facility about patient possible return tomorrow via phone.
Original Note:
Patient from SNF, CM called to Lynn from admissions and updated SNF about patient admission to . Patient is LTC at SNF. CM will continue to follow for discharge planning needs.
Plan; return to SNF
[2023-12-02 15:45] VITALS: BP 149/93
--- NOTE | 2023-12-02 17:01 | W.PN.HOSP.TC ---
Today's Communication/Plan
-
cont current management
tube feeds to start tomorrow
Assessment / Plan
Assessment / Plan
pt is a 68 year old male
Colon Perforation of ascending colon status post polyp resection 12/01/2023-- 6 mm polyp cecum removed, 30 mm polyp resection ascending colon with post perforation--apprec GI/CRS--NPO--IVF--meds IV as able--start zosyn--cultures pending--plan is to
start tube feeds and if tolerating then d/c
Hx rectal bleeding post colonoscopy with polypectomy May 2023
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
CVA hx/History of vascular dementia, nonverbal at baseline--Chronic� contracture neck, arms, left hand and legs--not amenable to PT/OT
Seizure history?� Post CVA--Continue IV Keppra
Chronic G-tube 11/06 CVA--Chronic Abd pain per daughter
Gerd-- will make PPI IV daily
Chronic Mesa catheter--monitor output-- hold oxytrol
Nephrectomy due to renal cancer /solo kidney unsure what side
chronic cholecystits presumed with percutaneous biliary tube�placed at [place] oct 29 for gallstone�not removed--had follow up at [facility] not [place] that placed it
History of constipation--Hold stool softeners
Essential hypertension--Hold po� amlodipine, hydrochlorothiazide, lisinopril, metoprolol--Iv hydralazine prn sbp >165
Hypercholesterolemia--Continue statin
Type 2 diabetes--Hold Lantus 8 units due to n.p.o. status--Insulin sliding scale low
Hypothyroidism--Hold po levothyroxine
History of pulmonary embolism--Hold Eliquis--reportedly got dose of Eliquis yesterday before procedure today
Glaucoma-Continue eyedrops
History of anemia of chronic disease--HoLd iron supplement
DVT prophylaxis--SCDs hold Eliquis
Full code
Anticipated Discharge: 24 - 48 hours
Subjective/Interval History
-
Date of Service: December 02, 2023
pt nonverbal
Objective Data
-
Labs:
Laboratory Results
12/02/23
05:49
WBC 13.5 H
Hgb 13.0
Hct 40.2
Plt Count 333
Sodium 139
Potassium 3.7
Chloride 102
Carbon Dioxide 25
BUN 10
Creatinine 0.8
Glucose 116 H
Calcium 10.0
Total Bilirubin 1.6 H
AST 37
ALT 40
Alkaline Phosphatase 93
Vital Signs:
max temp for 24 hours
12/02/23
11:00
Temp 99.0 F
Vital Signs
Temp Pulse Resp BP Pulse Ox
98.7 F 99 18 149/93 98
12/02/23 15:45 12/02/23 15:45 12/02/23 15:45 12/02/23 15:45 12/02/23 15:45
I&O
12/01/23 12/02/23 12/03/23
06:59 06:59 06:59
Intake Total 1190 / 1190
Output Total 620 / 620 230 / 230
Balance 570 / 570 -230 / -230
Review of Systems
-
Unable to obtain full review of systems at this time due to: Patient Non-verbal
Physical Exam
-
General: Well Developed, Well Nourished and No Apparent Distress
HEENT: Normocephalic, Atraumatic and Oxygen
Respiratory: Clear to Auscultation; Negative Wheezes or Rhonchi
Cardiac: Regular Rhythm and S1/S2; Negative Murmur
GI: Soft, Nontender, Nondistended, Normal Bowel Sounds and Ostomy (colostomy)
Genito-urinary: Supra Pubic Tube
Musculoskeletal: No Clubbing, No Cyanosis and No Edema
Neuro: Awake
Psych: Calm
[2023-12-02 17:35] LABS: Glucose - Point of Care 83 mg/dl (70-99)
--- NOTE | 2023-12-02 17:36 | W.PN.UPDATE ---
Update Note
Progress Note Update
Patient's daughter Kandice ([phone]) had reached out asking for an update on her dad, I did discuss that he is clinically doing well and that his obstruction series from today did not reveal any free air and that most likely will start him on tube
feeds tomorrow advance as tolerated and if continues to do well possible discharge in 48 hours. I also discussed with her that the obstruction series today did not reveal any evidence of free air so most likely the perforation was sealed with the
clips continue antibiotics. She was questioning whether he would need a CAT scan, I explained to her that clinically he is doing well and no evidence of free air on an obstruction series so currently no indication for a CAT scan but if there is any
change in clinical status will proceed with a CAT scan.
[2023-12-02 23:00] VITALS: BP 162/95
[2023-12-02 23:03] LABS: Glucose - Point of Care 78 mg/dl (70-99)
[2023-12-03] MEDS: NSS 1000 IV ×2 (02:17→18:24)
[2023-12-03] MEDS: ZOSYN 50 IV ×4 (04:23→21:22)
[2023-12-03 05:36] LABS: Glucose - Point of Care 77 mg/dl (70-99)
[2023-12-03 06:55] LABS: % Basophils 0.4 % (0-2); % Eosinophils 0.9 % (0-6); % Immature Granulocytes 0.3 % (0-0.5); % Lymphocytes 18.3 % (20.5-51.1); % Monocytes 13.6 % (1.7-9.3); % Neutrophils 66.5 % (42.2-75.2); Absolute Eosinophils 0.1 10^3/uL (0-0.7); Absolute Lymphocytes 1.6 10^3/uL (1.2-3.4); Absolute Monocytes 1.2 10^3/uL (0.1-0.6); Hematocrit 35.9 % (39.0-52.0); Hemoglobin 11.7 g/dL (13.0-18.0); Mean Corp Hgb Conc. 32.6 g/dL (33.0-37.0); Mean Corpuscular Hgb 31.6 pg (27.0-31.0); Mean Platelet Volume 10.1 fL (7.4-10.4); Nucleated Red Blood Cells % 0 % (-); Platelet Count 277 10^3/uL (130-400); Red Cell Dist. Width 18.1 % (11.5-14.5)
[2023-12-03 07:00] VITALS: BP 146/102
[2023-12-03 07:11] LABS: ALT (SGPT) 40 U/L (0-50); AST (SGOT) 34 U/L (17-59); Albumin 3.4 g/dl (3.5-5.0); Alkaline Phosphatase 87 U/L (38-126); Blood Urea Nitrogen 8 mg/dl (9-20); Calcium 9.5 mg/dl (8.4-10.2); Carbon Dioxide 26 mmol/L (22-30); Chloride 109 mmol/L (98-107); Estimated Creatinine Clearance 86 ml/min; Glucose 86 mg/dl (70-99); Magnesium 1.8 mg/dl (1.6-2.3); Potassium 3.4 mmol/L (3.5-5.1); Sodium 139 mmol/L (135-145); Total Bilirubin 1.4 mg/dl (0.2-1.3); Total Protein 6.7 g/dl (6.3-8.2); eGFR > 60.00
--- NOTE | 2023-12-03 07:37 | W.PN.GI.CBS2 ---
Today's Communication / Plan
-
repeat obstruction series, abdomen slightly more distended today ? ileus
if neg start TF
Continue to hold ELIQUIS
follow HB
Assessment / Plan
-
1. Colon perforation noted post colonoscopy with polypectomy 12/01 and the defect was closed with 4 clips during the procedure with complete closure of the defect. continue the broad-spectrum antibiotics and serial abdominal exams. His abdominal
exam is benign no signs of peritonitis noted obstruction series yesterday with no evidence of free air, will repeat obstruction series today and if negative will start him on tube feeds at a low rate and advance as tolerated
2. he did have blood in the colostomy bag reported yesterday, hemoglobin with slight drop today but no further active bleeding. continue to hold his Eliquis for at least another 5 to 7 days
3. He also has prior history of colon cancer status postresection with colostomy.
4. calculous cholecystis in Oct with CBD stone 10/13/23 vicente tube placed then 10/29/23 ERCP with stone removal.� Plan for vicente at [facility] in January and plan to keep vicente tube in place til that time.
Subjective
Subjective
Date of Service: December 03, 2023
Patient nonverbal unable to provide history looks comfortable, no reported vomiting, he did have blood in the colostomy output yesterday but none since then
Objective
Data Reviewed
Laboratory Data:
Laboratory Results
12/03/23 06:34
12/03/23 06:34
Laboratory Results
Magnesium 1.8 mg/dl (1.6-2.3) 12/03/23 06:34
Total Bilirubin 1.4 mg/dl (0.2-1.3) H 12/03/23 06:34
AST 34 U/L (17-59) 12/03/23 06:34
ALT 40 U/L (0-50) 12/03/23 06:34
Alkaline Phosphatase 87 U/L (38-126) 12/03/23 06:34
Vital Signs and I&O:
Vital Signs
Temp Pulse Resp BP Pulse Ox
99.1 F 100 16 162/95 96
12/02/23 23:00 12/02/23 23:00 12/02/23 23:00 12/02/23 23:00 12/02/23 23:00
I&O
12/02/23 12/03/23 12/04/23
06:59 06:59 06:59
Intake Total 1190 / 1190 720 / 720
Output Total 620 / 620 1110 / 1110
Balance 570 / 570 -390 / -390
Physical Exam
Physical Exam
Cardiology: Normal Sinus Rhythm
Pulmonary: Clear
GI: Soft, Distended (Mildly distended), Tender (Mild tenderness diffusely) and Normal Bowel Sounds
[2023-12-03] MEDS: NSS (PRESERVATIVE FREE) 10 ML IV (09:36)
[2023-12-03] MEDS: SYNTHROID 75 MCG TUBE (09:36)
[2023-12-03] MEDS: DESENEX/MITRAZOL/ZEASORB 1 APPLIC TOPICAL ×3 (09:36→21:02)
[2023-12-03] MEDS: FERROUS SULFATE ORAL LIQUID 150 MG TUBE ×2 (09:36→20:56)
[2023-12-03] MEDS: PROTONIX IV 40 MG IV (09:36)
[2023-12-03] MEDS: KEPPRA 500 MG TUBE ×2 (09:36→20:57)
[2023-12-03] MEDS: HIPREX 1 GRAM TUBE ×2 (09:37→20:57)
[2023-12-03] MEDS: VITAMIN C 500 MG TUBE (09:37)
--- NOTE | 2023-12-03 09:45 | PN.CDI ---
Addendum entered and electronically signed by Joanne Freeman MD 12/03/23 10:28:
unable to determine
Original Note:
CDI
- -
CDI:
Physician Documentation Request
Admit Date: 12/01/23 15:00
Dear Doctor Pete,
Clinical Indicators:
Patient admitted with colon perforation.
PMH includes CVA and vacular dementia; PEG tube for feedings & chronic callaway catheter
12/02 PN, 'Chronic�contracture neck, arms, left hand and legs--not amenable to PT/OT'
12/02 OT note,' Pt currently total care for ADLs and nicky transfer out of bed to chair.'
Which, if any, of the following is a likely etiology of the above abnormalities and treatment rendered::
Functional quadriplegia (complete immobility due to severe physical disability or frailty)
Contractures only
Other
Use of terms such as suspected, likely, concern for, or probable (associated with a specific diagnosis that is being evaluated, monitored, or treated as if it exists) are acceptable and can be coded in the inpatient setting, when documented at the
time of discharge.
Thank you,
LATRICE Dominguez RN
CDI Specialist
available via tiger text
Please use your independent medical judgment in providing your response.
[2023-12-03] MEDS: VITAMIN D3 (cholecalciferol) 25 MCG TUBE (09:46)
--- NOTE | 2023-12-03 09:50 | W.PN.UPDATE ---
Update Note
Progress Note Update
Discussed with colorectal surgery Dr. Olivier they would like to hold tube feeds for now since he has very minimal to none output from his ostomy, no further bleeding either since yesterday. Will continue to hold tube feeds okay for meds through tube
feeds and will start once cleared by colorectal surgery. Reviewed x-ray from today he does have evidence of ileus. D/w Dr. Freeman also,.
12/03/23 Obstruction series
IMPRESSION:
1. No clear radiographic evidence of free intraperitoneal air.
2. Findings suggestive of adynamic ileus.
3. Small left pleural effusion, unchanged.
[2023-12-03] MEDS: NORVASC 5 MG TUBE (09:56)
[2023-12-03] MEDS: LOPRESSOR 12.5 MG TUBE ×2 (09:57→20:56)
--- NOTE | 2023-12-03 10:18 | W.PN.CRS1 ---
Today's Communication / Plan
-
no surgery warranted at this time
Assessment/Plan
-
Assessment: 68-year-old male with several medical issues including a past CVA, nonverbal state, colostomy, and G tube, status post colonoscopy today with a perforation upon resection treated with clips
Plan:
1. Tachycardic. Afebrile. WBC down to 9.0.
2. Xray ordered by GI this morning shows no free air, adynamic ileus. Would recommend going slow on tfs.
3. Await stoma output. Continue to hold Eliquis. Management per GI.
4. No colorectal surgery is indicated at this time. No indication for a CT scan.
Subjective Data
Subjective Data
Date of Service: December 03, 2023
Unable to verbalize any complaints. Per nursing he is still not had any output overnight in his colostomy bag.
Objective Data
-
Vital Signs
Temp Pulse Resp BP Pulse Ox
97.5 F 70 18 146/86 97
12/03/23 07:00 12/03/23 09:57 12/03/23 07:00 12/03/23 09:57 12/03/23 08:45
Intake & Output
12/02/23 12/03/23 12/04/23
06:59 06:59 06:59
Intake Total 1190 / 1190 720 / 720
Output Total 620 / 620 1110 / 1110
Balance 570 / 570 -390 / -390
Intake:
IV fluids (Total) 820 / 820 620 / 620
Nss 1,000 ml @ 60 mls/hr IV . 100 / 100
[id number] [facility] Rx#:[id number]
IV piggybacks 370 / 370 100 / 100
Output:
Liquid stool amount 50 / 50
Colostomy 50 / 50
Drain Output (Total) 170 / 170 360 / 360
Right Biliary 170 / 170 360 / 360
Urine, Mesa 450 / 450 700 / 700
Lab Results
12/03/23 06:34
12/03/23 06:34
Physical Exam
-
General: No Acute Distress and AOx3
Abdomen: Soft, Non Distended, Tender (RUQ tenderness) and Other (Stoma with no stool in bag, warm and pink)
Skin: Warm and Dry
--- NOTE | 2023-12-03 10:19 | W.PN.HOSP.TC ---
Today's Communication/Plan
-
care as per GI/CRS
meds restarted via tube
Assessment / Plan
Assessment / Plan
pt is a 68 year old male
Colon Perforation of ascending colon status post polyp resection 12/01/2023-- 6 mm polyp cecum removed, 30 mm polyp resection ascending colon with post perforation--apprec GI/CRS--NPO--IVF--meds IV as able--start zosyn--cultures pending--plan is to
start tube feeds per GI and CRS and if tolerating then d/c--meds restarted via tube
hypokalemia--replete
Hx rectal bleeding post colonoscopy with polypectomy May 2023
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
CVA hx/History of vascular dementia, nonverbal at baseline--Chronic� contracture neck, arms, left hand and legs--not amenable to PT/OT
Seizure history?� Post CVA--Continue IV Keppra
Chronic G-tube 11/06 CVA--Chronic Abd pain per daughter
Gerd-- will make PPI IV daily
Chronic Mesa catheter--monitor output-- hold oxytrol
Nephrectomy due to renal cancer /solo kidney unsure what side
chronic cholecystits presumed with percutaneous biliary tube�placed at [facility] oct 29 for gallstone�not removed--had follow up at [facility] not [facility] that placed it
History of constipation--Hold stool softeners
Essential hypertension--Hold po� amlodipine, hydrochlorothiazide, lisinopril, metoprolol--Iv hydralazine prn sbp >165
Hypercholesterolemia--Continue statin
Type 2 diabetes--Hold Lantus 8 units due to n.p.o. status--Insulin sliding scale low
Hypothyroidism--Hold po levothyroxine
History of pulmonary embolism--Hold Eliquis--reportedly got dose of Eliquis yesterday before procedure today
Glaucoma-Continue eyedrops
History of anemia of chronic disease--HoLd iron supplement
DVT prophylaxis--SCDs hold Eliquis
Full code
Anticipated Discharge: 24 - 48 hours
Subjective/Interval History
-
Date of Service: December 03, 2023
pt nonverbal
Objective Data
-
Labs:
Laboratory Results
12/03/23
06:34
WBC 9.0
Hgb 11.7 L
Hct 35.9 L
Plt Count 277
Sodium 139
Potassium 3.4 L
Chloride 109 H
Carbon Dioxide 26
BUN 8 L
Creatinine 0.8
Glucose 86
Calcium 9.5
Total Bilirubin 1.4 H
AST 34
ALT 40
Alkaline Phosphatase 87
Vital Signs:
max temp for 24 hours
12/02/23
23:00
Temp 99.1 F
Vital Signs
Temp Pulse Resp BP Pulse Ox
97.5 F 70 18 146/86 97
12/03/23 07:00 12/03/23 09:57 12/03/23 07:00 12/03/23 09:57 12/03/23 08:45
I&O
12/02/23 12/03/23 12/04/23
06:59 06:59 06:59
Intake Total 1190 / 1190 720 / 720
Output Total 620 / 620 1110 / 1110
Balance 570 / 570 -390 / -390
Review of Systems
-
Unable to obtain full review of systems at this time due to: Patient Non-verbal
Physical Exam
-
General: Well Developed, Well Nourished, No Apparent Distress and Appears Chronically Ill
HEENT: Normocephalic and Atraumatic; Negative Oxygen
Respiratory: Clear to Auscultation; Negative Wheezes or Rhonchi
Cardiac: Regular Rhythm and S1/S2; Negative Murmur
GI: Soft, Nontender, Nondistended and Normal Bowel Sounds
Musculoskeletal: No Clubbing and No Cyanosis; Negative No Edema (2+ with bad toenail hygiene)
Skin: Warm
Neuro: Negative Awake or Alert
[2023-12-03] MEDS: KCL ELIXIR 40 MEQ TUBE (10:52)
[2023-12-03 11:52] LABS: Glucose - Point of Care 87 mg/dl (70-99)
--- NOTE | 2023-12-03 15:44 | CM ---
Patient seen at bedside. Plan is for patient to return to SNF when medically appropriate. CM will continue to follow for discharge planning needs.
Plan; return to SNF
[2023-12-03 15:50] VITALS: BP 138/78
[2023-12-03] MEDS: DEXTROSE 50% SYRINGE 12.5 GRAMS IV (17:39)
[2023-12-03 17:46] LABS: Glucose - Point of Care 62 mg/dl (70-99)
[2023-12-03 17:59] LABS: Glucose - Point of Care 113 mg/dl (70-99)
[2023-12-03] MEDS: PREVACID 15 MG TUBE (21:02)
[2023-12-03] MEDS: XALATAN OPHTHALMIC SOLUTION 1 DROP BOTH EYES (21:03)
[2023-12-03 23:30] VITALS: BP 160/100
[2023-12-03 23:32] LABS: Glucose - Point of Care 71 mg/dl (70-99)
[2023-12-04 00:18] LABS: Glucose - Point of Care 66 mg/dl (70-99)
[2023-12-04] MEDS: DEXTROSE 50% SYRINGE 12.5 GRAMS IV (00:23)
[2023-12-04] MEDS: APRESOLINE 10 MG IV (00:24)
[2023-12-04 00:57] LABS: Glucose - Point of Care 137 mg/dl (70-99)
[2023-12-04 03:06] VITALS: BP 145/84
[2023-12-04] MEDS: ZOSYN 50 IV ×3 (03:51→17:44)
[2023-12-04 05:13] LABS: Glucose - Point of Care 86 mg/dl (70-99)
[2023-12-04 06:36] LABS: % Basophils 0.3 % (0-2); % Immature Granulocytes 0.4 % (0-0.5); % Lymphocytes 20.8 % (20.5-51.1); % Monocytes 12.9 % (1.7-9.3); % Neutrophils 64.6 % (42.2-75.2); Absolute Eosinophils 0.1 10^3/uL (0-0.7); Absolute Monocytes 1.3 10^3/uL (0.1-0.6); Absolute Neutrophils 6.3 10^3/uL (1.4-6.5); Hematocrit 37.8 % (39.0-52.0); Hemoglobin 12.3 g/dL (13.0-18.0); Mean Corp Hgb Conc. 32.5 g/dL (33.0-37.0); Mean Corpuscular Hgb 31.1 pg (27.0-31.0); Mean Corpuscular Volume 95.7 fL (80.0-94.0); Mean Platelet Volume 10.2 fL (7.4-10.4); Nucleated Red Blood Cells % 0 % (-); Platelet Count 298 10^3/uL (130-400); Red Blood Cell Count 3.95 10^6/uL (4.70-6.10); Red Cell Dist. Width 17.9 % (11.5-14.5); White Blood Cell Count 9.7 10^3/uL (4.8-10.8)
[2023-12-04 07:00] VITALS: BP 154/71
[2023-12-04 07:37] LABS: ALT (SGPT) 35 U/L (0-50); AST (SGOT) 30 U/L (17-59); Albumin 3.4 g/dl (3.5-5.0); Alkaline Phosphatase 86 U/L (38-126); Blood Urea Nitrogen 4 mg/dl (9-20); Calcium 9.7 mg/dl (8.4-10.2); Carbon Dioxide 24 mmol/L (22-30); Chloride 110 mmol/L (98-107); Estimated Creatinine Clearance 98 ml/min; Glucose 97 mg/dl (70-99); Magnesium 1.8 mg/dl (1.6-2.3); Potassium 3.4 mmol/L (3.5-5.1); Sodium 141 mmol/L (135-145); Total Bilirubin 1.5 mg/dl (0.2-1.3); Total Protein 6.8 g/dl (6.3-8.2); eGFR > 60.00
--- NOTE | 2023-12-04 09:01 | W.PN.CRS1 ---
Addendum entered and electronically signed by Jass Lindsey MD 12/04/23 16:48:
I saw and examined the patient.
The PA's note was reviewed and I agree with the note.
Comment:
Seen in a.m. with PA.
Minimally responsive as is typical.
Vitals reasonable. White count normal at 9.7.
Abdominal exam hard to interpret but not obviously tender.
Stoma does show some gas in the bag and is viable.
Okay with tube feeds from a surgical perspective.
Will follow peripherally.
Original Note:
Today's Communication / Plan
-
okay to resume tfs
no surgery indicated
will sign off
Assessment/Plan
-
Assessment: 68-year-old male with several medical issues including a past CVA, nonverbal state, colostomy, and G tube, status post colonoscopy today with a perforation upon resection treated with clips
Plan:
1. Vitals normal. Labs normal. WBC 9.7.
2. Patient now with stoma output. Okay to resume TFs from our standpoint.
3. Eliquis management per GI - no surgery indicated.
4. No colorectal surgery is indicated at this time. Will sign off. Please contact us if further issues arise.
5. Complete course of abx.
Subjective Data
Subjective Data
Date of Service: December 04, 2023
Patient non-verbal (baseline) and sleeping.
Objective Data
-
Vital Signs
Temp Pulse Resp BP Pulse Ox
99 F 85 18 145/84 100
12/03/23 23:30 12/04/23 03:06 12/03/23 23:30 12/04/23 03:06 12/03/23 23:30
Intake & Output
12/03/23 12/04/23 12/05/23
06:59 06:59 06:59
Intake Total 720 / 720 1760 / 1760
Output Total 1110 / 1110 2034 / 2034
Balance -390 / -390 -275 / -275
Intake:
IV fluids (Total) 620 / 620 1260 / 1260
IV piggybacks 100 / 100 200 / 200
Tube feeding 300 / 300
Output:
Liquid stool amount 50 / 50 125 / 125
Colostomy 50 / 50 125 / 125
Drain Output (Total) 360 / 360 470 / 470
Right Biliary 360 / 360 470 / 470
Urine, Mesa 700 / 700 1440 / 1440
Lab Results
12/04/23 06:15
12/04/23 06:15
Physical Exam
-
General: No Acute Distress
Abdomen: Soft, Non Distended and Tender (mild RUQ)
[2023-12-04] MEDS: KCL ELIXIR 40 MEQ TUBE (09:17)
[2023-12-04] MEDS: FERROUS SULFATE ORAL LIQUID 150 MG TUBE ×2 (09:17→19:57)
[2023-12-04] MEDS: LOPRESSOR 12.5 MG TUBE ×2 (09:17→19:56)
[2023-12-04] MEDS: VITAMIN C 500 MG TUBE (09:18)
[2023-12-04] MEDS: SYNTHROID 75 MCG TUBE (09:18)
[2023-12-04] MEDS: KEPPRA 500 MG TUBE ×2 (09:18→19:57)
[2023-12-04] MEDS: NORVASC 5 MG TUBE (09:18)
[2023-12-04] MEDS: VITAMIN D3 (cholecalciferol) 25 MCG TUBE (09:18)
[2023-12-04] MEDS: NSS (PRESERVATIVE FREE) 10 ML IV (09:19)
[2023-12-04] MEDS: PROTONIX IV 40 MG IV (09:19)
[2023-12-04] MEDS: HIPREX 1 GRAM TUBE ×2 (09:19→19:57)
[2023-12-04] MEDS: DESENEX/MITRAZOL/ZEASORB 1 APPLIC TOPICAL ×3 (09:20→21:39)
--- NOTE | 2023-12-04 09:26 | CM ---
Addendum entered by Tracy Bach 12/04/23 09:49:
Please call report to [phone]/fax [phone]. Ambulance to transport after tube feeding restarted per physician. Daughter updated about reutrn to SNF and provided her email [email or web address], CM will email [email or web address] form. CM updated GI,
and attending. CM will complete transportation forms and plan for return to SNF.
Plan; return to [facility]
Original Note:
Patient seen at bedside with physician. Patient for restart of tube feeding, CM will call to [facility] to confirm return to SNF. CM will continue to follow for discharge planning needs.
Plan; return to SNF
--- NOTE | 2023-12-04 09:57 | W.PN.HOSP.TC ---
Today's Communication/Plan
-
d/c if tolerating tube feeds
cont 10 days of oral abx via tube at d/c
Assessment / Plan
Assessment / Plan
pt is a 68 year old male
Colon Perforation of ascending colon status post polyp resection 12/01/2023-- 6 mm polyp cecum removed, 30 mm polyp resection ascending colon with post perforation--apprec GI/CRS--NPO--IVF--meds IV as able--start zosyn--cultures pending--plan is to
start tube feeds per GI and CRS and if tolerating then d/c--meds restarted via tube--starting tube feeds today
hypokalemia--replete
Hx rectal bleeding post colonoscopy with polypectomy May 2023
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
CVA hx/History of vascular dementia, nonverbal at baseline--Chronic�contracture neck, arms, left hand and legs--not amenable to PT/OT
Seizure history?� Post CVA--Continue IV Keppra
Chronic G-tube 11/06 CVA--Chronic Abd pain per daughter
Gerd-- will make PPI IV daily
Chronic Mesa catheter--monitor output-- hold oxytrol
Nephrectomy due to renal cancer /solo kidney unsure what side
chronic cholecystits presumed with percutaneous biliary tube�placed at [place] oct 29 for gallstone�not removed--had follow up at [facility] not [facility] that placed it
History of constipation--Hold stool softeners
Essential hypertension--Hold po� amlodipine, hydrochlorothiazide, lisinopril, metoprolol--Iv hydralazine prn sbp >165
Hypercholesterolemia--Continue statin
Type 2 diabetes--Hold Lantus 8 units due to n.p.o. status--Insulin sliding scale low
Hypothyroidism--Hold po levothyroxine
History of pulmonary embolism--Hold Eliquis--reportedly got dose of Eliquis yesterday before procedure today
Glaucoma-Continue eyedrops
History of anemia of chronic disease--HoLd iron supplement
DVT prophylaxis--SCDs hold Eliquis
Full code
Anticipated Discharge: Today
Subjective/Interval History
-
Date of Service: December 04, 2023
pt nonverbal
Objective Data
-
Labs:
Laboratory Results
12/04/23
06:15
WBC 9.7
Hgb 12.3 L
Hct 37.8 L
Plt Count 298
Sodium 141
Potassium 3.4 L
Chloride 110 H
Carbon Dioxide 24
BUN 4 L
Creatinine 0.7
Glucose 97
Calcium 9.7
Total Bilirubin 1.5 H
AST 30
ALT 35
Alkaline Phosphatase 86
Vital Signs:
max temp for 24 hours
12/03/23
23:30
Temp 99 F
Vital Signs
Temp Pulse Resp BP Pulse Ox
98.6 F 87 19 154/71 95
12/04/23 07:00 12/04/23 07:00 12/04/23 07:00 12/04/23 07:00 12/04/23 09:38
I&O
12/03/23 12/04/23 12/05/23
06:59 06:59 06:59
Intake Total 720 / 720 1760 / 1760
Output Total 1110 / 1110 2034
Balance -390 / -390 -275 / -275
Review of Systems
-
Unable to obtain full review of systems at this time due to: Patient Non-verbal
Physical Exam
-
General: Well Developed, Well Nourished and No Apparent Distress
HEENT: Normocephalic, Atraumatic and Oxygen
Respiratory: Clear to Auscultation; Negative Wheezes or Rhonchi
Cardiac: Regular Rhythm and S1/S2; Negative Murmur
GI: Soft, Nontender, Nondistended, Normal Bowel Sounds, Peg Tube, Ostomy and Other (urostomy, perc vicente tube)
Genito-urinary: Mesa (chronic)
Musculoskeletal: No Clubbing and No Cyanosis; Negative No Edema (edema with poor nail hygiene)
Neuro: Awake
Psych: Calm
[2023-12-04 12:38] LABS: Glucose - Point of Care 113 mg/dl (70-99)
--- NOTE | 2023-12-04 14:30 | W.PN.GI.CBS2 ---
Today's Communication / Plan
-
complete course of antibiotics
Assessment / Plan
-
-complete course of antibiotics
- continue TFs
will sign off
Subjective
Subjective
Date of Service: December 04, 2023
Pt getting TFs in no distress
Objective
Data Reviewed
Laboratory Data:
Laboratory Results
12/04/23 06:15
12/04/23 06:15
Laboratory Results
Magnesium 1.8 mg/dl (1.6-2.3) 12/04/23 06:15
Total Bilirubin 1.5 mg/dl (0.2-1.3) H 12/04/23 06:15
AST 30 U/L (17-59) 12/04/23 06:15
ALT 35 U/L (0-50) 12/04/23 06:15
Alkaline Phosphatase 86 U/L (38-126) 12/04/23 06:15
Vital Signs and I&O:
Vital Signs
Temp Pulse Resp BP Pulse Ox
98.6 F 87 19 154/71 95
12/04/23 07:00 12/04/23 07:00 12/04/23 07:00 12/04/23 07:00 12/04/23 09:38
I&O
12/03/23 12/04/23 12/05/23
06:59 06:59 06:59
Intake Total 720 / 720 1760 / 1760
Output Total 1110 / 1110 2034
Balance -390 / -390 -275 / -275
Physical Exam
Physical Exam
GI: Soft
Neuro: Non Focal (not conversant)
[2023-12-04 15:00] VITALS: BP 141/78
--- NOTE | 2023-12-04 17:35 | W.DCSUMMARY ---
Discharge Summary
Discharge Data
Date of Admission: 12/01/23
Date of Discharge: 12/04/23
-
Pending Results: No
Hospital Course
Primary care physician : Not Listed
Principal Discharge diagnosis : Ascending colon perforation during colonoscopy with polyp resection, hypokalemia
Chronic Discharge diagnosis : History of rectal bleeding in May 2023 after colonoscopy with polypectomy, chronic colostomy due to history of colon cancer, history of stroke with vascular dementia nonverbal at baseline, seizure history, chronic
G-tube, gastroesophageal reflux disease, chronic Mesa catheter, nephrectomy due to renal cancer with solo kidney remaining, chronic cholecystitis with percutaneous biliary tube placed at [place] October 29, history of constipation, essential
hypertension, hyperlipidemia, type 2 diabetes mellitus, hypothyroidism, history of pulmonary embolism, glaucoma, anemia of chronic disease
Hospital Course : Patient is a 68-year-old male with chronic medical problems who presented for colonoscopy. The patient is status post polyp resection and had a perforation during the colonoscopy. He had no active bleeding and vital signs were
stable. GI recommended admission to the hospital.
Problem #1: Ascending colon perforation during colonoscopy with polyp resection. This was repaired during the colonoscopy with clips. Colorectal surgery and GI were consulted. There was no need for any surgical intervention. Tube feedings were
restarted and the patient is tolerating those well. He is stable for discharge back to his [facility] at this time.
Problem #2: Hypokalemia. This was followed and repleted as necessary.
Problem #3: All other medical issues. These include History of rectal bleeding in May 2023 after colonoscopy with polypectomy, chronic colostomy due to history of colon cancer, history of stroke with vascular dementia nonverbal at baseline,
seizure history, chronic G-tube, gastroesophageal reflux disease, chronic Mesa catheter, nephrectomy due to renal cancer with solo kidney remaining, chronic cholecystitis with percutaneous biliary tube placed at [place] October 29, history of
constipation, essential hypertension, hyperlipidemia, type 2 diabetes mellitus, hypothyroidism, history of pulmonary embolism, glaucoma, anemia of chronic disease. These medical issues were stable during his hospitalization. Medications were
continued as able. Of note, the percutaneous biliary tube/cholecystostomy tube is still present.
Patient is stable to return to the usp at this time. He is normally on Glucerna tube feeds but we do not carry those here. He is on Osmolite 1.2 at this institution and he can resume his tube feedings as prior to admission once he returns
back to the usp. If there are any questions regarding this dictation or his hospital stay, please not hesitate to call. Our office number is [phone].
Time for discharge 31 minutes.
Procedure findings :
COLONOSCOPY Findings:
�� � A 6 mm polyp was found in the cecum. The polyp was sessile. The polyp
�� � was removed with a cold snare. Resection and retrieval were complete.
�� � A 30 mm polyp was found in the ascending colon. The polyp was sessile.
�� � Preparations were made for mucosal resection. Demarcation of the lesion
�� � was performed with narrow band imaging to clearly identify the
�� � boundaries of the lesion. The underwater technique was used as well as
�� � Everlift was injected to raise the lesion. Snare mucosal resection was
�� � performed. Resection and retrieval were complete. Area was successfully
�� � injected with 3 mL of a 0.1 mg/mL solution of epinephrine for hemostasis
�� � of bleeding caused by the procedure. Coagulation for hemostasis of
�� � bleeding caused by the procedure using hot biopsy forceps was
�� � successful. During resection, a full thickness defect was noted
�� � consistent with perforation. To repair the defect, the tissue edges were
�� � approximated and four hemostatic clips were successfully placed (MR
�� � conditional). Closure of the defect was successful. There was no
�� � bleeding at the end of the procedure.
Pathology findings:
Colon, cecum, polypectomy: Tubular adenoma.
Colon, ascending, polypectomy: Tubular adenoma, extending to tissue edges.
Discharge Plan
-
Patient Disposition: Long Term/SNF
Discharge Diagnosis/Procedures: Perforation of ascending colon after polyp resection December 01, 2023, hypokalemia, history of rectal bleeding, chronic colostomy, stroke history with vascular dementia nonverbal at baseline, seizure history, chronic
feeding tube, gastroesophageal reflux disease, chronic Mesa catheter, nephrectomy due to renal cancer solo kidney, chronic cholecystitis with presumed percutaneous biliary tube placed at [place] October 29, history constipation, essential
hypertension, hyper lipidemia, type 2 diabetes mellitus, hypothyroidism, history of pulmonary embolism, glaucoma, anemia of chronic disease
Condition: Fair
Diet: Tube feeding
Additional Diets: advance to goal tube feed as tolerated
Activity: As tolerated
Driving Restrictions: No driving
Bathing Restrictions: None
Activity Restrictions/Additional Instructions:
Will need to continue antibiotics for another 10 days
Referrals:
UNKNOWN - PT NOT,INTERVIEWE [Family Provider] - in less than 1 week
Prescriptions:
New
amoxicillin-pot clavulanate [Augmentin ES-600] 600-42.9 mg/5 mL suspension for reconstitution
5 ml PO Q12H 10 Days Qty: 100 0RF
Rx Instructions:
take for 10 days
Continued
acetaminophen 325 mg Tablet
650 mg feeding tube Q6H PRN (Reason: mild pain or fever>100)
atorvastatin 20 mg Tablet
20 mg feeding tube HS
albuterol sulfate 2.5 mg /3 mL (0.083 %) Solution For Nebulization
2.5 mg INHALATION R Q6HPRN PRN (Reason: sob)
amlodipine 5 mg Tablet
5 mg feeding tube DAILY
Eliquis 2.5 mg Tablet
2.5 mg feeding tube BID
Hold Instructions: Resume on 05/14/23.
insulin glargine [Lantus Solostar U-100 Insulin] 100 unit/mL (3 mL) Insulin Pen
8 unit SC HS
methenamine hippurate 1 gram Tablet
1 g feeding tube BID
omeprazole 20 mg Capsule,Delayed Release(Dr/Ec)
20 mg feeding tube HS
insulin aspart U-100 [Novolog FlexPen U-100 Insulin] 100 unit/mL (3 mL) Insulin Pen
1 - 10 sliding scale dose SC Q6H
Rx Instructions:
05/06/2023, if 145-169 = 1 unit; 170-194 = 2 units; 195-219 = 3 units; 220-244 = 4 units; 245-269 = 5 units; 270-294 = 6 units; 295-319 = 7 units; 320-344 = 8 units; 345-369 = 9 units; 370-399 = 10 units
metoprolol tartrate 25 mg Tablet
12.5 mg feeding tube BID
Rx Instructions:
hold for SBP < 100 or HR < 60
lisinopril 10 mg Tablet
10 mg feeding tube DAILY
hydrochlorothiazide 50 mg Tablet
50 mg feeding tube DAILY
latanoprost 0.005 % Drops
1 drp BOTH EYES HS
polyethylene glycol 3350 [Miralax] 17 gram Powder In Packet
17 feeding tube BID
levothyroxine 25 mcg Tablet
75 mcg feeding tube DAILY
ascorbic acid (vitamin C) [Vitamin C] 500 mg Tablet
500 mg FEEDING TUBE DAILY
ferrous sulfate 300 mg (60 mg iron)/5 mL Liquid
150 mg feeding tube BID
nystatin 100,000 unit/gram Powder
1 applic TOPICAL TID
Oxytrol 3.9 mg/24 hr Patch Semiweekly
1 patch TRANSDERMAL MOTH
cholecalciferol (vitamin D3) 25 mcg (1,000 unit) Tablet
25 mcg feeding tube DAILY
levetiracetam 500 mg/5 mL (5 mL) Solution
500 mg feeding tube BID
cranberry 450 mg Tablet
450 mg feeding tube BID
Remedy Phytoplex Moisturizer Cream
1 applic TOPICAL TID
polyethylene glycol 3350 17 gram Powder In Packet
17 g feeding tube DAILY PRN (Reason: constipation)
magnesium hydroxide [Milk of Magnesia] 400 mg/5 mL Suspension
30 ml feeding tube DAILY PRN (Reason: give once if no BM x 3 days)
bisacodyl [Dulcolax (bisacodyl)] 10 mg Suppository
10 mg NM DAILY PRN (Reason: constipation once if mom ineffective)
Fleet Enema 19-7 gram/118 mL Enema
118 ml NM DAILY PRN (Reason: once if dulcolax ineffective)
simethicone 80 mg Tablet,Chewable
80 mg PO Q6H PRN (Reason: gas)
senna leaf extract [senna] 176 mg/5 mL Syrup
15 ml FEEDING TUBE HS
Discharge Orders:
Discharge Patient (As Directed); Ordered 12/04/23
Ordered By: Joanne Freeman
[2023-12-04 18:42] LABS: Glucose - Point of Care 137 mg/dl (70-99)
[2023-12-04] MEDS: PREVACID 15 MG TUBE (21:38)
[2023-12-04] MEDS: XALATAN OPHTHALMIC SOLUTION 1 DROP BOTH EYES (21:39)
[2023-12-04] MEDS: ZOSYN IV (22:27)
--- NOTE | 2023-12-04 22:52 | PTCARENOTE ---
22:45 pt d/c, report stephany int [facility] nurse Gladys . 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
== END 2023-12-04 22:50 | DRG 919 ==
LOC: 2 SOUTH 15:00
PROVIDERS: Clinical Nurse Specialist Family Health; Internal Medicine Gastroenterology; ADMITTING PHYSICIAN Internal Medicine; CONSULT PHYSICIAN Surgery; OTHER PHYSICIAN Internal Medicine Gastroenterology
PROC: 0DBH8ZX Excision of Cecum, Via Natural or Artificial Opening Endoscopic, Diagnostic (ICD-10-PCS; 2023-12-01)
PROC: 0DBK8ZZ Excision of Ascending Colon, Via Natural or Artificial Opening Endoscopic (ICD-10-PCS; 2023-12-01)
PROC: 0DBK8ZX Excision of Ascending Colon, Via Natural or Artificial Opening Endoscopic, Diagnostic (ICD-10-PCS; 2023-12-01)
PROC: 0W3P8ZZ Control Bleeding in Gastrointestinal Tract, Via Natural or Artificial Opening Endoscopic (ICD-10-PCS; 2023-12-01)
PROC: 3E0H8GC Introduction of Other Therapeutic Substance into Lower GI, Via Natural or Artificial Opening Endoscopic (ICD-10-PCS; 2023-12-01)
DX: K91.71 Accidental puncture and laceration of a digestive system organ or structure during a digestive system procedure (principal); K63.1 Perforation of intestine (nontraumatic); J90 Pleural effusion, not elsewhere classified; K21.9 Gastro-esophageal reflux disease without esophagitis; G89.29 Other chronic pain; G40.909 Epilepsy, unspecified, not intractable, without status epilepticus; K81.1 Chronic cholecystitis; I10 Essential (primary) hypertension; F01.50 Vascular dementia, unspecified severity, without behavioral disturbance, psychotic disturbance, mood disturbance, and anxiety; H40.9 Unspecified glaucoma; D63.8 Anemia in other chronic diseases classified elsewhere; E03.9 Hypothyroidism, unspecified; K59.09 Other constipation; E78.00 Pure hypercholesterolemia, unspecified; D12.0 Benign neoplasm of cecum; D12.2 Benign neoplasm of ascending colon; E11.9 Type 2 diabetes mellitus without complications; Y65.8 Other specified misadventures during surgical and medical care; Y92.530 Ambulatory surgery center as the place of occurrence of the external cause; E87.6 Hypokalemia; R00.0 Tachycardia, unspecified; R13.10 Dysphagia, unspecified; Z93.3 Colostomy status; Z93.1 Gastrostomy status; Z90.5 Acquired absence of kidney; Z79.4 Long term (current) use of insulin; Z79.890 Hormone replacement therapy; Z86.711 Personal history of pulmonary embolism; Z79.01 Long term (current) use of anticoagulants; Z85.528 Personal history of other malignant neoplasm of kidney; Z74.01 Bed confinement status; Z85.038 Personal history of other malignant neoplasm of large intestine; I69.318 Other symptoms and signs involving cognitive functions following cerebral infarction; Z90.49 Acquired absence of other specified parts of digestive tract; Z87.19 Personal history of other diseases of the digestive system; Z86.010 Personal history of colon polyps
CPT/HCPCS: 88305; 74022; 80053; 82962; 83036; 83735; 85025; 86850; 86900; 86901; 87040; 87070